=== PATIENT | female | born 1990 | race African-American/Black ===

== ENCOUNTER → 2021-09-30 | Outpatient (CLI) | payer OTHER | LOC: COL.RAD 07:37 | DX: R11.2 Nausea with vomiting, unspecified (principal); R10.9 Unspecified abdominal pain | CPT/HCPCS: A9541 ==

== ENCOUNTER → 2021-10-02 | Outpatient (CLI) | payer OTHER | LOC: COL.RAD 09:30 | DX: K44.9 Diaphragmatic hernia without obstruction or gangrene (principal); K21.9 Gastro-esophageal reflux disease without esophagitis ==

== ENCOUNTER → 2022-02-17 | Outpatient (CLI) | payer OTHER | LOC: COL.VAS 09:00 | DX: I10 Essential (primary) hypertension (principal) ==